=== PATIENT | male | born 2000 | race Caucasian/White ===

== ENCOUNTER 2020-07-16 22:35 | Emergency (ER) | payer OTHER ==
[~2020-07-16] VITALS: Ht 188 cm; Wt 86.9 kg
--- NOTE | 2020-07-16 22:51 | NUR ---
PT AMBULATED TO ROOM, NO ACUTE DISTRESS, C/O LOWER ABDOMINAL PAIN.
--- NOTE | 2020-07-16 23:02 | NUR ---
PA TO BEDSIDE TO EVAL PT.
--- NOTE | 2020-07-16 23:15 | NUR ---
PT A&OX4, PIV STARTED TO RIGHT AC 18G X1 ATTEMPT. LABS COLLECTED AND SENT DOWN TO LAB. PTS SISTER AT BEDSIDE.
[2020-07-16 23:20] LABS: BASOPHILS % (AUTO) 1 % (0-1); EOSINOPHILS % (AUTO) 1 % (1-7); LYMPHOCYTES % (AUTO) 42 % (22-44); MEAN CORPUSCULAR HEMOGLOBIN 29.2 pg (27.5-34.5); MEAN CORPUSCULAR HGB CONC 34.9 g/dL (33.2-36.2); MEAN PLATELET VOLUME 8.8 fL (7.4-10.4); MONOCYTES % (AUTO) 15 % (2-9); NEUTROPHILS % (AUTO) 41 % (42-75); PLATELET COUNT 230 x10^3/uL (130-400); RED BLOOD COUNT 6.13 x10^6/uL (4.38-5.82); RED CELL DISTRIBUTION WIDTH 13.2 % (9.4-14.8)
[2020-07-16 23:27] LABS: MD SCAN
[2020-07-16] MEDS ORDERED: SODIUM CHLORIDE 0.9% 1,000 ML IV ONE (23:30)
[2020-07-16] MEDS ORDERED: SODIUM CHLORIDE FLUSH 10ML SYR IVF ONE (23:30)
[2020-07-16 23:32] LABS: ALANINE AMINOTRANSFERASE 17 U/L (12-78); ALBUMIN 4.3 g/dL (3.4-5.0); ANION GAP 5 mmol/L (5-15); CALCIUM 8.8 mg/dL (8.5-10.1); CHLORIDE 107 mmol/L (98-107); CREATININE 1.09 mg/dL (0.7-1.3)
[2020-07-16 23:34] LABS: ALKALINE PHOSPHATASE 84 U/L (45-117); BILIRUBIN,TOTAL 0.4 mg/dL (0.2-1.0); TOTAL PROTEIN 7.8 g/dL (6.4-8.2)
--- NOTE | 2020-07-17 00:06 | NUR ---
PT RESTING COMFORTABLY IN BED. IVF BAG DONE AND IV SALINE LOCKED. ALL LAB WORK IS BACK, AND PT WAITING FOR CT.
--- NOTE | 2020-07-17 00:23 | NUR ---
PT WHEELED TO CT SCAN BY TECH. PT A&OX4, NO ACUTE DISTRESS.
[2020-07-17] MEDS ORDERED: OMNIPAQUE 350 MG/ML, 100ML BOTTLE ONE (00:32)
--- NOTE | 2020-07-17 00:49 | NUR ---
REPORT FROM KIERSTEN LUKE
[2020-07-17 00:52] VITALS: BP 131/69
--- NOTE | 2020-07-17 00:53 | NUR ---
REPORT AND CARE TO JUSTIN LUKE.
--- NOTE | 2020-07-17 00:57 | NUR ---
PT SITTING UPRIGHT ON FAWN SPENCER VSS. PT DENIES ANY NEEDS AT THIS TIME. CALL LIGHT AND BELONGINGS WITHIN REACH, SIGNIFICANT OTHER AT BEDSIDE.
--- NOTE | 2020-07-17 01:20 | NUR ---
Patient given discharge instructions and they have confirmed that they understand the instructions. Patient ambulatory with steady gait.
== END 2020-07-17 01:30 | disposition home or self-care (01) ==
LOC: ED 07-17 01:10
DX: R10.31 Right lower quadrant pain (principal); R19.7 Diarrhea, unspecified
CPT/HCPCS: 36415; 74177; 80053; 85025; 96360; 96361; 99285; J7030; Q9967